=== PATIENT | male | born 1990 | race Caucasian/White ===

== ENCOUNTER 2017-12-05 23:31 | Emergency (ER) | payer OTHER ==
[~2017-12-05] VITALS: Ht 175.3 cm; Wt 70.5 kg
[2017-12-05 23:55] VITALS: Ht 175.3 cm; Wt 70.5 kg
[2017-12-06] MEDS ORDERED: AUGMENTIN 875-11 TAB PO (00:51)
[2017-12-06 04:01] VITALS: BP 123/75
== END 2017-12-06 04:02 | disposition home or self-care (01) ==
LOC: D.ER 23:31
DX: S61.452A Open bite of left hand, initial encounter (principal); W54.0XXA Bitten by dog, initial encounter; Y93.89 Activity, other specified; Y92.410 Unspecified street and highway as the place of occurrence of the external cause; F17.200 Nicotine dependence, unspecified, uncomplicated